=== PATIENT | female | born 1940 | race Caucasian/White ===

== ENCOUNTER → 2018-06-02 | Outpatient (CLI) | payer OTHER, MEDICARE | LOC: FIMAGING 15:37 | PROVIDERS: ATTEND Internal Medicine | DX: M25.562 Pain in left knee (principal) ==

== ENCOUNTER → 2018-06-21 | Outpatient (CLI) | payer OTHER, MEDICARE | LOC: FIMAGING 12:47 | PROVIDERS: ATTEND Internal Medicine | DX: Z13.820 Encounter for screening for osteoporosis (principal); M81.0 Age-related osteoporosis without current pathological fracture ==